=== PATIENT | female | born 1975 | race Caucasian/White ===

== ENCOUNTER 2016-11-12 07:31 | Emergency (ER) | payer MEDICARE, MEDICAID ==
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
[2016-11-12] MEDS ORDERED: fentaNYL-PF 50 mCg/mL 2 mL Inj IVPUSH PRN (07:50)
[2016-11-12] MEDS ORDERED: Ondansetron 2 mg/mL 2 mL Inj IVPUSH ONE (07:50)
[2016-11-12 07:54] LABS: BASOPHILS % (AUTO) 0.3 % (0-3); EOSINOPHILS % (AUTO) 3.8 % (0-5); MONOCYTES % (AUTO) 11.4 % (4-12); Mean Corpuscular Hemoglobin 29.6 pg (27.0-35.0); Mean Corpuscular Volume 89.5 fL (81-100); NEUTROPHILS % (AUTO) 59.9 % (40-74); Platelet Count 234 bil/L (150-400)
[2016-11-12 08:01] LABS: INR 0.91 ratio
[2016-11-12] MEDS ORDERED: LAMO150T2 PO (08:24)
[2016-11-12] MEDS ORDERED: LAMO100T2 PO (08:24)
[2016-11-12] MEDS ORDERED: LEVO150T5 PO (08:41)
[2016-11-12] MEDS ORDERED: PROP10TA8 PO (08:41)
[2016-11-12] MEDS ORDERED: LIT300 PO (08:41)
[2016-11-12] MEDS ORDERED: DIVA500T6 PO (08:41)
[2016-11-12] MEDS ORDERED: CITA10TA9 PO (08:41)
[2016-11-12] MEDS ORDERED: METH18TA12 PO (08:41)
[2016-11-12] MEDS ORDERED: LAMO25TA PO (08:41)
[2016-11-12] MEDS ORDERED: CLON0.1T PO (08:41)
[2016-11-12] MEDS ORDERED: CYCL10TA9 PO (08:41)
[2016-11-12] MEDS ORDERED: LEVO100T6 PO (08:41)
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
[2016-11-12 12:42] VITALS: BP 110/86; PULSE 108; RESP 25
[2016-11-13 00:08] LABS: Hepatitis A Antibody IgM Negative (Negative); Hepatitis B Core Antibody IgM Negative (Negative)
== END 2016-11-12 12:45 | disposition home or self-care (01) ==
LOC: SED 07:31
DX: S06.0X1A Concussion with loss of consciousness of 30 minutes or less, initial encounter (principal); S20.219A Contusion of unspecified front wall of thorax, initial encounter; V43.52XA Car driver injured in collision with other type car in traffic accident, initial encounter; Y93.89 Activity, other specified; Y92.410 Unspecified street and highway as the place of occurrence of the external cause; Y99.8 Other external cause status; E16.2 Hypoglycemia, unspecified; R41.82 Altered mental status, unspecified; Z90.710 Acquired absence of both cervix and uterus; F17.200 Nicotine dependence, unspecified, uncomplicated; Z88.8 Allergy status to other drugs, medicaments and biological substances
CPT/HCPCS: 36415; 70450; 71010; 71260; 72125; 74177; 80053; 80178; 81025; 84703; 85025; 85610; 86705; 86709; 86850; 87340; 87341; 93005; 99285; G0390; G0472; G0480; Q9967